=== PATIENT | female | born 1990 | race Caucasian/White ===

== ENCOUNTER 2018-01-16 17:40 | Emergency (ER) | payer OTHER, MEDICAID, SELFPAY ==
[2018-01-16] VITALS (17 sets, daily range): BP systolic 95–125; BP diastolic 58–95; PULSE 52–96; RESP 18–28; TEMP 36.1–36.3; O2SAT 96–100
[2018-01-16] MEDS: NALOXONE 1 MG/ML SYRINGE 0.8 MG IV (17:45)
[2018-01-16 18:39] LABS: Add Manual Diff / Slide Review NO; Basophils Percent Auto 0.6 % (0-2); Eosinophils Percent Auto 0.3 % (2-4); Hemoglobin 12.1 g/dL (12.0-16.0); Lymphocytes Percent Auto 38.5 % (25-40); Mean Corpuscular HGB Conc 33.7 % (30-36); Mean Corpuscular Hemoglobin 30.2 PG (26-34); Mean Corpuscular Volume 89.6 fL (80-100); Monocytes Percent Auto 7.5 % (3-14); Neutrophils Absolute Auto 3800 /uL (3000-5900); Neutrophils Percent Auto 53.1 % (50-75); Platelet Count 252 X10^3/uL (150-400); Red Blood Cell Count 4.01 X10^6/uL (4.0-5.2); White Blood Cell Count 7.1 X10^3/uL (4.5-11.0)
[2018-01-16] MEDS: DEXTROSE 50 % IN WATER 25 GM/50 ML SYRINGE IV (18:39)
[2018-01-16] MEDS: SODIUM CHLORIDE 0.9% 1,000 ML 1000 ML IV ×2 (18:39→19:33)
[2018-01-16] MEDS: ONDANSETRON 4 MG/2 ML INJ IV (18:43)
[2018-01-16 18:44] LABS: Urine Amphetamines Negative (Negative); Urine Barbiturates Negative (Negative); Urine Benzodiazepines Negative (Negative); Urine Cocaine Negative (Negative); Urine MDMA Negative (Negative); Urine Methadone Negative (Negative); Urine Methamphetamines Negative (Negative); Urine Morphine/Opi cutoff 2000 Negative (Negative); Urine Oxycodone Negative (Negative); Urine Phencyclidine Negative (Negative); Urine Tetrahydrocannabinol Negative (Negative); Urine Tricyclic Antidepressant Negative (Negative)
[2018-01-16] MEDS: NALOXONE 1 MG/ML SYRINGE IV (18:44)
[2018-01-16 18:47] LABS: Acetaminophen < 10 ug/mL (10-30); Alanine Aminotransferase 33 IU/L (9-52); Albumin 4.3 g/dL (3.5-5.0); Albumin Globulin Ratio 1.5 (1.0-2.8); Alkaline Phosphatase 41 U/L (38-126); Aspartate Aminotransferase 28 IU/L (14-36); BUN Creatinine Ratio 12.9 (6-22); Bilirubin Total 0.5 mg/dL (0.2-1.3); Bilirubin Unconjugated 0.2 mg/dL (0.0-1.1); Blood Urea Nitrogen 9 mg/dL (7-17); Calcium 8.9 mg/dL (8.4-10.2); Carbon Dioxide 27 mmol/L (22-32); Chloride 103 mmol/L (98-107); Estimated Glomerular Filt Rate > 60.0 mL/min (>60); Ethanol (ETOH) 211 mg/dL; Globulin 2.9 g/dL (1.7-4.1); Glucose 97 mg/dL (70-100); HEMOLYSIS 28 (0-50); Lipase 71 U/L (23-300); Potassium 3.7 mmol/L (3.4-5.1); Salicylate 3.3 mg/dL (<20); Sodium 142 mmol/L (137-145); Total Protein 7.2 g/dL (6.3-8.2)
[2018-01-16 18:48] LABS: Lactate (Lactic Acid) 1.3 mmol/L (0.7-2.1)
--- NOTE | 2018-01-16 19:21 | ED_ITS ---
HPI - Altered Mental Status General Chief Complaint: Unresponsive Stated Complaint: UNRESPONSIVE Time Seen by Provider: 01/16/18 18:22 Source: family Limitations: physical limitation History of Present Illness HPI narrative: Patient is a 27-year-old female presenting with decreased mental status on by POV. She has known alcohol intake unknown if she has any other drugs on board. There was no response to Narcan. According to boyfriend she is also taking a lot of diet pills. She does not drink on a regular basis. She is now vomited unresponsive to painful stimuli MD complaint: altered mental status Related Data Home Medications Medication Instructions Recorded Confirmed trazodone 100 mg PO HS #0 05/25/16 10/21/17 norethindrone acetate-ethinyl 1 tab PO DAILY 10/21/17 10/21/17 estradiol 1.5 mg-30 mcg tablet Allergies Allergy/AdvReac Type Severity Reaction Status Date / Time No Known Drug Allergies Allergy Unverified 10/21/17 16:32 Review of Systems Review of Systems Unable to obtain Exam Initial Vital Signs Initial Vital Signs: Vital Signs Temperature 96.9 F L 01/16/18 17:45 Pulse Rate 78 01/16/18 17:45 Respiratory Rate 28 H 01/16/18 17:45 Blood Pressure 121/74 01/16/18 17:45 Pulse Oximetry 100 01/16/18 17:45 Const General: ill appearing Orientation: obtunded Limitations: altered mental status [facility] Head: normal to inspection, normocephalic and atraumatic Mouth: oral mucosae normal Eyes Pupils: PERRL and not pinpoint EOM: EOM intact bilaterally Neck Neck: normal visual inspection and trachea midline Chest Chest: normal inspection of the chest Resp Effort & Inspection: not labored, no pursed lip breathing, no respiratory distress, no retractions and not tachypneic Auscultation: clear to auscultation bilaterally, no egophony, no rales and no rhonchi Cardio Rate: regular rate Rhythm: regular rhythm Heart Sounds: S1 normal and S2 normal GI Palpation: soft Skin General: no rashes or lesions noted, No jaundice and No petechiae Neuro General: obtunded (+ Gag, responsive to painful stimuli) Extrem General: normal to inspection and full ROM Right upper extremity: normal to inspection Left upper extremity: normal to inspection Right lower extremity: normal to inspection Left lower extremity: normal to inspection Course Orders Ordered: Discontinued Medications Dextrose (D50w) 25 gm IV PRN PRN PRN Reason: Hypocalcemia Last Admin: 01/16/18 18:39 Dose: 25 gm Sodium Chloride (Normal Saline 0.9%) 1,000 mls @ 1,000 mls/hr IV CONT KATHARINA Last Infusion: 01/16/18 19:30 Dose: 0 mls/hr Admin: 01/16/18 18:39 Dose: 1,000 mls/hr Sodium Chloride (Normal Saline 0.9%) 1,000 mls @ 1,000 mls/hr IV BOLUS ONE Stop: 01/16/18 20:16 Last Infusion: 01/16/18 21:05 Dose: 0 mls/hr Admin: 01/16/18 19:33 Dose: 1,000 mls/hr Naloxone HCl (Narcan) 0.8 mg IV NOW ONE Stop: 01/16/18 17:46 Last Admin: 01/16/18 17:45 Dose: 0.8 mg Naloxone HCl (Narcan) 1 mg IV NOW ONE Stop: 01/16/18 18:01 Last Admin: 01/16/18 18:44 Dose: 1 mg Ondansetron HCl (Zofran) 4 mg IV NOW ONE Stop: 01/16/18 18:42 Last Admin: 01/16/18 18:43 Dose: 4 mg Vital Signs - 8 hr 01/16/18 19:45 01/16/18 20:30 01/16/18 22:24 Pulse Rate 79 61 57 L Respiratory Rate 19 26 H 19 Blood Pressure [Left Arm] 112/78 Blood Pressure [Right Arm] 110/88 102/72 Pulse Oximetry 100 100 99 MDM - Altered Mental Status Lab Data Attestation: I reviewed the patient's lab results. Result diagrams: 01/16/18 18:00 01/16/18 18:00 Lab Results 01/16/18 01/16/18 01/16/18 Range/Units 18:00 18:00 18:00 WBC 7.1 (4.5-11.0) X10^3/uL RBC 4.01 (4.0-5.2) X10^6/uL Hgb 12.1 (12.0-16.0) g/dL Hct 36.0 (36-46) % MCV 89.6 (80-100) fL MCH 30.2 (26-34) PG MCHC 33.7 (30-36) % RDW 16.0 H (11.6-14.8) % Plt Count 252 (150-400) X10^3/uL Neut % (Auto) 53.1 (50-75) % Lymph % (Auto) 38.5 (25-40) % Stanton % (Auto) 7.5 (3-14) % Eos % (Auto) 0.3 L (2-4) % Baso % (Auto) 0.6 (0-2) % Neut # (Auto) 3800 (4634-7525) /uL Sodium 142 (137-145) mmol/L Potassium 3.7 (3.4-5.1) mmol/L Chloride 103 (98-107) mmol/L Carbon Dioxide 27 (22-32) mmol/L BUN 9 (7-17) mg/dL Creatinine 0.70 (0.52-1.04) mg/dL Estimated GFR > 60.0 (>60) mL/min BUN/Creatinine Ratio 12.9 (6-22) Glucose 97 (70-100) mg/dL Lactate (0.7-2.1) mmol/L Calcium 8.9 (8.4-10.2) mg/dL Total Bilirubin 0.5 (0.2-1.3) mg/dL Conjugated Bilirubin 0.0 (0.0-0.3) md/dL Unconjugated Bilirubin 0.2 (0.0-1.1) mg/dL AST 28 (14-36) IU/L ALT 33 (9-52) IU/L Alkaline Phosphatase 41 (38-126) U/L Total Protein 7.2 (6.3-8.2) g/dL Albumin 4.3 (3.5-5.0) g/dL Globulin 2.9 (1.7-4.1) g/dL Albumin/Globulin Ratio 1.5 (1.0-2.8) Lipase 71 (23-300) U/L Salicylates 3.3 (<20) mg/dL Urine Opiates Screen (Negative) Ur Oxycodone Screen (Negative) Urine Methadone Screen (Negative) Acetaminophen < 10 L (10-30) ug/mL Ur Barbiturates Screen (Negative) U Tricyclic Antidepress (Negative) Ur Phencyclidine Scrn (Negative) Ur Amphetamines Screen (Negative) U Methamphetamines Scrn (Negative) Ur MDMA Scrn (Ecstasy) (Negative) U Benzodiazepines Scrn (Negative) Urine Cocaine Screen (Negative) U Marijuana (THC) Screen (Negative) Ethyl Alcohol 211 mg/dL 01/16/18 01/16/18 Range/Units 18:00 18:07 WBC (4.5-11.0) X10^3/uL RBC (4.0-5.2) X10^6/uL Hgb (12.0-16.0) g/dL Hct (36-46) % MCV (80-100) fL MCH (26-34) PG MCHC (30-36) % RDW (11.6-14.8) % Plt Count (150-400) X10^3/uL Neut % (Auto) (50-75) % Lymph % (Auto) (25-40) % Stanton % (Auto) (3-14) % Eos % (Auto) (2-4) % Baso % (Auto) (0-2) % Neut # (Auto) (7024-5773) /uL Sodium (137-145) mmol/L Potassium (3.4-5.1) mmol/L Chloride (98-107) mmol/L Carbon Dioxide (22-32) mmol/L BUN (7-17) mg/dL Creatinine (0.52-1.04) mg/dL Estimated GFR (>60) mL/min BUN/Creatinine Ratio (6-22) Glucose (70-100) mg/dL Lactate 1.3 (0.7-2.1) mmol/L Calcium (8.4-10.2) mg/dL Total Bilirubin (0.2-1.3) mg/dL Conjugated Bilirubin (0.0-0.3) md/dL Unconjugated Bilirubin (0.0-1.1) mg/dL AST (14-36) IU/L ALT (9-52) IU/L Alkaline Phosphatase (38-126) U/L Total Protein (6.3-8.2) g/dL Albumin (3.5-5.0) g/dL Globulin (1.7-4.1) g/dL Albumin/Globulin Ratio (1.0-2.8) Lipase (23-300) U/L Salicylates (<20) mg/dL Urine Opiates Screen Negative (Negative) Ur Oxycodone Screen Negative (Negative) Urine Methadone Screen Negative (Negative) Acetaminophen (10-30) ug/mL Ur Barbiturates Screen Negative (Negative) U Tricyclic Antidepress Negative (Negative) Ur Phencyclidine Scrn Negative (Negative) Ur Amphetamines Screen Negative (Negative) U Methamphetamines Scrn Negative (Negative) Ur MDMA Scrn (Ecstasy) Negative (Negative) U Benzodiazepines Scrn Negative (Negative) Urine Cocaine Screen Negative (Negative) U Marijuana (THC) Screen Negative (Negative) Ethyl Alcohol mg/dL Point of Care Testing Test Results Negative Glucose POC 79 Urine Dip Bedside Urine Glucose Negative Bedside Urine Bilirubin - Negative Bedside Urine Ketone - Negative Urine Specific [place] 1.010 Bedside Urine Occult Blood - Negative Bedside Urine pH 6.0 Bedside Urine Protein - Negative Bedside Urine Urobilinogen - Negative Bedside Urine Nitrite - Negative Bedside Urine Leukocytes - Negative Esterase ECG Data Attestation: I personally reviewed and interpreted this ECG as follows: Prior ECG tracings: not available for review Interpretation: Normal sinus rhythm rate [address] changes or T- wave inversion no priors to compare MDM Narrative Medical decision making narrative: Patient vomited she has a gag. She is breathing not in any distress. At this time is no indication for emergent intubation or airway. She does become more responsive as time goes on. Blood work shows only alcohol intoxication. When she is more fully awake she states she did not eat much today and that she did drink. She denies any other drug use. She feels ready and able to go home. Mother and boyfriend both at bedside patient ready and able to go. Discharge Plan Departure Patient Disposition: Home Clinical Impression: Alcohol intoxication Discharge Date/Time: 01/16/18 22:58 Interventions: ED Discharge Assessment Last Done: 01/16/18 22:58 Instructions: DI for Alcohol Poisoning Activity Restrictions/Additional Instructions: *You have been diagnosed with alcohol intoxication *What to do: Do not drink alcohol *Continue to take medications as directed *Follow up with your primary care provider in 2-3 days *Return to ER if you should have any new, worsening or concerning symptoms Prescriptions: No Action norethindrone ac-eth estradiol [Microgestin 1.5/30 (21)] 1.5-30 mg-mcg tablet 1 tab PO DAILY RF: 0 trazodone 100 MG tablet 100 mg PO HS Qty: 0 RF: 0 Stand Alone Forms: Work/School Restrictions
--- NOTE | 2018-01-16 19:51 | PC.NURSE ---
Boyfriend at bedside. Pt continues to vomit liquid / partially digested food every 15-30 min. Now awake w/ general stimulation. Asks what happened. Easy work of breathing. Skin is warm and dry.
--- NOTE | 2018-01-16 21:42 | PC.NURSE ---
pt rouses to verbal, answering questions appropriately, slurred speech, unable to remain sitting up unassisted, no further nausea/vomiting, MD updated, friend at bedside
--- NOTE | 2018-01-16 22:57 | PC.NURSE ---
Melissa cath DC'd per protocol. Pt tolerated well.
== END 2018-01-16 22:58 | disposition home or self-care (01) ==
PROVIDERS: Emergency Provider Emergency Medicine
DX: F10.10 Alcohol abuse, uncomplicated (principal)
CPT/HCPCS: 36591; 80053; 80076; 80305; 80320; 80329; 81003; 81025; 82962; 83605; 83690; 85025; 93005; 96361; 96374; 96375; 96376; 99285; 99291; G0480; J2310; J2405

== ENCOUNTER → 2018-03-28 11:22 | Outpatient (CLI) | payer OTHER, MEDICAID, SELFPAY | PROVIDERS: Visit Provider Physician Assistant | DX: L03.90 Cellulitis, unspecified (principal) | CPT/HCPCS: 87070; 87075; 87205 ==